=== PATIENT | male | born 1955 | race Caucasian/White ===

== ENCOUNTER 2016-06-29 08:38 | Emergency (ER) | payer BC ==
[2016-06-29 08:56] VITALS: BP 142/72
--- NOTE | 2016-06-29 08:56 | EDM.PDOC ---
ED HPI Skin/Rash - General Stated Complaint: RASH Time Seen by Provider: 06/29/16 08:38 Source: Reports: Patient, Family History Limitations: Reports: No limitations - History of Present Illness INITIAL COMMENTS - FREE TEXT/NARRATIVE: 60 years old w m came to the ed after he noticed a "rash" at his left flank. No pain, itch etc. No other medical issues at this time. Symptom Onset Date: 06/29/16 Symptom Onset Time: 07:00 Timing: Reports: still present, rapid onset Location, Skin: Reports: abdomen Quality: Reports: Dull Severity: mild Known Identified Source: possible/maybe When: prior to symptom onset Place: home Sick Contact: no Associated symptoms: Reports: denies other symptoms - Related Data Allergies Allergy/AdvReac Type Severity Reaction Status Date / Time No Known Allergies Allergy Verified 02/01/15 02:02 Home Meds: Ambulatory Orders Medication Instructions Recorded Confirmed Hydrochlorothiazide 12.5 mg DAILY 02/01/15 06/29/16 Multivitamin [Multi-Vitamin Daily] 1 tab DAILY 02/01/15 06/29/16 Omeprazole 20 mg PO DAILY 02/01/15 06/29/16 Cephalexin [Keflex] 500 mg PO Q6HR #40 cap 06/29/16 Famciclovir 500 mg PO Q8HR #30 tablet 06/29/16 Past Medical History - Past Surgical History Other Musculoskeletal Surgeries/Procedures:: R arm fx repair Social & Family History - Tobacco Use Smoking Status *Q: Never Smoker - Alcohol Use Days Per Week of Alcohol Use: 4 Number of Drinks Per Day: 1 Total Drinks Per Week: 4 - Recreational Drug Use Recreational Drug Use: No ED ROS GENERAL - Review of Systems Review Of Systems: See Below Constitutional: Reports: no symptoms HEENT: Reports: No symptoms Respiratory: Reports: No Symptoms Cardiovascular: Reports: No symptoms Endocrine: Reports: no symptoms GI/Abdominal: Reports: No symptoms : Reports: no symptoms Musculoskeletal: Reports: no symptoms Skin: Reports: rash (left flank) Neurological: Reports: No Symptoms Psychiatric: Reports: No symptoms Hematologic/Lymphatic: Reports: no symptoms Immunologic: Reports: no symptoms ED EXAM, SKIN/RASH Exam: See Below Exam Limited By: No limitations General Appearance: alert, WD/WN, no apparent distress Eye Exam: bilateral eye: normal inspection Ears: normal external exam Nose: normal inspection Throat/Mouth: Normal inspection Head: atraumatic Neck: normal inspection Respiratory/Chest: no respiratory distress Cardiovascular: normal peripheral pulses Peripheral Pulses: 1+: femoral (L), femoral (R) GI/Abdominal: normal bowel sounds, soft, non tender (Male) Exam: Deferred Rectal (Males) Exam: Deferred Back Exam: normal inspection, full range of motion Extremities: normal inspection, normal range of motion, non-tender, no pedal edema Neurological: alert, oriented, CN II-XII intact, normal cognition, normal gait, normal reflexes Psychiatric: normal affect Skin: Zoster-like rash (left groin) Location, Skin: other (left flank) Associated features: inflammation Lymphatic: no adenopathy Course - Vital Signs Text/Narrative:: 60 years old w m came to the ed after he noticed a "rash" at his left flank. No pain, itch etc. No other medical issues at this time. PE: herpes zoster left flank, following the left 12th thoracic nerve distribution, No open wound, no blisters. Impression:herpes zoster left flank Plan: D/C'd with instructions Last Recorded V/S: Last Vital Signs Temp 37.0 C 06/29/16 08:45 Pulse 83 06/29/16 08:45 Resp 18 06/29/16 08:45 BP 142/72 H 06/29/16 08:45 Pulse Ox Departure - Departure Time of Disposition: 08:50 Disposition: Home, Self-Care 01 Condition: good Clinical Impression: Shingles Qualifiers: Herpes zoster complications: without complications Qualified Code(s): B02.9 - Zoster without complications Prescriptions: Cephalexin [Keflex] 500 mg PO Q6HR #40 cap Famciclovir 500 mg PO Q8HR #30 tablet Instructions: Shingles, [id number] Referrals: PCP,None [Primary Care Provider] - Additional Instructions: Please take the meds as recommended. please take motrin for pain, apply neosporine ointment to the area twice daily. Please f/u, please come back if your symptoms get worse acutely.
== END 2016-06-29 09:30 | disposition home or self-care (01) ==
LOC: FB.ED 08:38
DX: B02.9 Zoster without complications (principal); Z79.899 Other long term (current) drug therapy
CPT/HCPCS: 99282

== ENCOUNTER 2024-03-18 18:11 | Emergency (ER) | payer MEDICARE ==
[2024-03-18] MEDS ORDERED: Sodium Chloride 0.9% 10 ML Syringe FLUSH PRN (18:13)
[2024-03-18] MEDS ORDERED: Naloxone 0.4 MG/ML SDV IVPUSH PRN (18:18)
[2024-03-18 18:27] LABS: BASOPHILS PERCENT AUTO 0.2 % (0.3-3.8); EOSINOPHILS ABSOLUTE AUTO 0.3 x10-3/uL (0.0-0.6); HEMATOCRIT 40.7 % (38.3-50.1); HEMOGLOBIN 12.9 g/dL (12.9-17.7); LYMPHOCYTES ABSOLUTE AUTO 2.4 x10-3/uL (0.5-4.5); MEAN CORPUSCULAR HEMOGLOBIN 28.4 pg (27.0-33.3); MEAN CORPUSCULAR HGB CONC 31.7 g/dL (28.7-35.3); MEAN CORPUSCULAR VOLUME 89.4 fL (80.8-98.7); MEAN PLATELET VOLUME 8.3 fL (6.7-11.0); MONOCYTES ABSOLUTE AUTO 0.7 x10-3/uL (0.0-1.2); MONOCYTES PERCENT AUTO 8.2 % (5.5-15.2); NEUTROPHILS ABSOLUTE AUTO 4.8 x10-3/uL (1.7-6.9); NEUTROPHILS PERCENT AUTO 58.6 % (40.3-71.8); PLATELET COUNT,PLT 225 x10(3)uL (117-477); RED BLOOD CELL COUNT 4.55 x10(6)uL (3.90-5.90); RED CELL DISTRIBUTION WIDTH 13.8 % (12.4-15.0); WHITE BLOOD CELL COUNT,WBC 8.2 x10-3/uL (3.2-10.1)
[2024-03-18] MEDS: Ondansetron 4 MG/2 ML SDV IVPUSH ONE (18:31)
[2024-03-18] MEDS: HYDROmorphone 2 MG/ML SDV IVPUSH ONE ×2 (18:31→21:00)
[2024-03-18 18:32] LABS: BLOOD UREA NITROGEN,BUN 19 mg/dL (7-18); BUN/CREATININE RATIO 14.6 (9-20); CALCIUM 9.5 mg/dL (8.6-10.2); CARBON DIOXIDE,CO2 26 mmol/L (21-32); CHLORIDE,CL 104 mmol/L (100-110); CREATININE 1.3 mg/dL (0.70-1.30); ESTIMATED GFR 61 mL/min (>60); GLUCOSE RANDOM 128 mg/dL (80-116); POTASSIUM,K 3.9 mmol/L (3.5-5.3); SODIUM,NA 142 mmol/L (135-145)
[2024-03-18] MEDS: HYDROmorphone 2 MG/ML SDV IVPUSH STA (18:37)
[2024-03-18 18:38] LABS: A/G RATIO 1.1; ALANINE AMINOTRANSFERASE,ALT 28 U/L (12-36); ALBUMIN 3.5 g/dL (3.2-4.6); ALKALINE PHOSPHATASE 87 IU/L (56-112); ASPARTATE AMNIOTRANSFERASE,AST 22 IU/L (5-25); BILIRUBIN TOTAL 0.4 mg/dL (0.1-1.3); PROTEIN TOTAL,TP 6.8 g/dL (6.0-8.0)
[2024-03-18 18:41] LABS: LACTIC ACID 1.9 mmol/L (0.4-2.0)
[2024-03-18] MEDS: Iopamidol 755 Mg/ML 100 ML Bottle IV ONE (19:06)
[2024-03-18 19:17] VITALS: BP 149/65; PULSE 82
[2024-03-18] MEDS: Sodium Chloride 0.9% 1,000 ML IV SCH (20:55)
[2024-03-18] MEDS ORDERED: Sodium Chloride 0.9% 1,000 ML IV SCH ×2 (22:00→22:30)
[2024-03-18] MEDS: Promethazine 25 MG/ML SDV IM STA (22:37)
== END 2024-03-18 23:00 ==
LOC: FB.ED 18:11
DX: G89.18 Other acute postprocedural pain (principal); R10.84 Generalized abdominal pain; I10 Essential (primary) hypertension; I25.10 Atherosclerotic heart disease of native coronary artery without angina pectoris; K21.9 Gastro-esophageal reflux disease without esophagitis; Z87.891 Personal history of nicotine dependence
CPT/HCPCS: 36415; 74177; 80053; 83605; 83690; 84484; 85025; 93005; 93010; 96361; 96372; 96374; 96375; 96376; 99285; 99285-25; J1171; J2405; J2550; J7030; Q9967

== ENCOUNTER 2024-03-27 14:37 | Emergency (ER) | payer MEDICARE ==
[2024-03-27 14:54] VITALS: BP 97/61; PULSE 88
== END 2024-03-27 15:29 ==
LOC: FB.ED 14:37
DX: M79.661 Pain in right lower leg (principal); I10 Essential (primary) hypertension; Z79.899 Other long term (current) drug therapy
CPT/HCPCS: 99284